=== PATIENT | female | born 1955 | race Hispanic/Latino ===

== ENCOUNTER 2018-07-24 15:04 | Observation (INO) | payer MEDICARE, OTHER ==
[2018-07-24 15:43] LABS: Bilirubin Small (Negative); Blood, Urine Negative (Negative); Clarity CLOUDY (Clear); Glucose, Urine (Dipstick) Negative (Negative); Leukocyte Small (Negative); Nitrite Positive (Negative); Protein, Urine (Dipstick) Negative (Neg-Trace); Specific Gravity, Urine 1.022 (1.002-1.036); Urobilinogen > or = 8.0 mg/dL (0.2-1.0); pH, Urine 6.5 (5.0-9.0)
[2018-07-24 15:44] LABS: Bacteria/HPF 4+ HPF (None Seen); Hyaline Casts/LPF 4-6 HYALINE CAST LPF (0-3 Hyaline); Pathc Cast-AUWi Flag 0.87 (0-2.49); Squamous Epithelial 0-3 HPF (0-3)
--- NOTE | 2018-07-24 15:53 | RAD ---
AP CHEST: Date: 07-24-18 Comparison: 01-06-17 FINDINGS: AP chest demonstrates calcification of the aorta. Severe bilateral shoulder osteoarthritic changes are seen. No evidence of effusions, pneumonia, or pn eumothorax is seen. Surgical clips are seen in the right upper quadrant of the abdomen. IMPRESSION: No evidence of acute intrathoracic abnormality seen. No evidence of effusions, pneumonia or pneumotho rax seen. POS: [facility]
[2018-07-24 15:54] LABS: RBC/HPF 0-3 HPF (0-3); Renal Epithelial None Seen HPF (0-3); Transitional Epithelial NONE SEEN HPF (0-3)
[2018-07-24 16:33] LABS: Hemoglobin 14.7 g/dL (12.0-16.0); Mean Corpuscular Hemoglobin 32.8 pg (27.0-31.0); Mean Corpuscular Volume 96.5 fL (78.0-98.0); Mean Platelet Volume 7.5 fL (7.4-10.4); Platelet Count 177 thou/uL (130-400); Red Blood Cell (RBC) Count 4.47 mill/uL (4.20-5.40); White Blood Cell (WBC) Count 3.7 thou/uL (4.8-10.8)
[2018-07-24] MEDS ORDERED: Piperacillin/Tazobactam 4.5 GM VIAL ONE (16:38)
[2018-07-24 16:56] LABS: Band 3 % (5-11); Eosinophils 1 % (0-10); Lymphocytes 73 % (21-51); MDiff Complete? YES; Monocytes 2 % (0-10); Neutrophil 21 % (42-75); PLT Morphology Comment Appears Adequate
[2018-07-24 17:08] LABS: ALT (SGPT) 11 U/L (8-55); AST (SGOT) 37 U/L (5-34); Albumin 3.4 g/dL (3.4-4.8); Alkaline Phosphatase 83 U/L (40-150); Anion Gap 12 mmol/L (10-20); BUN (Urea Nitrogen) 20 mg/dL (9.8-20.1); Bilirubin, Total 1.5 mg/dL (0.2-1.2); Calc. Creatinine Clearance 0 mL/min (70-130); Calcium 9.2 mg/dL (7.8-10.44); Carbon Dioxide 23 mmol/L (23-31); Chloride 110 mmol/L (98-107); Estimated GFR-MDRD 71; Globulin 3.5 g/dL (2.4-3.5); Glucose 88 mg/dL (80-115); Potassium 4.4 mmol/L (3.5-5.1); Protein, Total 6.9 g/dL (6.0-8.3); Sodium 141 mmol/L (136-145)
[2018-07-24] MEDS ORDERED: Sodium Chloride 0.9% 1,000 ML IV SCH (19:00)
[2018-07-24] MEDS ORDERED: Enoxaparin Sodium 40 MG/0.4 ML SYRINGE SC SCH (19:05)
[2018-07-24] MEDS ORDERED: HumaLOG 300 UNITS/3 ML VIAL SC PRN (19:05)
[2018-07-24] MEDS ORDERED: Dextrose 50% Abboject 50 ML SYRINGE SLOW IVP PRN (19:05)
[2018-07-24] MEDS ORDERED: Dextrose 5% in Water 1,000 ML IV PRN (19:05)
[2018-07-24] MEDS ORDERED: Acetaminophen 650 MG Suppository PR PRN (19:05)
[2018-07-24] MEDS ORDERED: Acetaminophen 325 MG TAB PO PRN (19:05)
--- NOTE | 2018-07-24 19:31 | HP ---
DATE OF ADMISSION: 07/24/2018 PRIMARY CARE PHYSICIAN: Sp Blakely MD TIME OF SERVICE: 1715. CHIEF COMPLAINT: Weakness and altered mental status. HISTORY OF PRESENT ILLNESS: Ms. Lemus is a pleasant 63-year-old female with history of cerebrovascular disease status post stroke in 2002, with residual right-sided paresis contractures, hypothyroidism, hyperlipidemia, hypertension, and schizophrenia, who has had a decreased p.o. intake for about 2 weeks. Over the last 24 hours to 48 hours, she has become more somnolent and lethargic, so the family had taken to the primary care physician over the last couple of days. She was checked for UTI without signs and subsequently came to the emergency department today because she was not act ing like herself. Workup in the ER was significant for neutropenia with absolute neutrophil count around 600-700 and a urinalysis consistent with urinary tract infection. She was given Zosyn and we were subsequently jorge led for admit. On my evaluation, family says the patient is much more alert than she has been, but still not quite a t her baseline. She had no fevers or chills, no sweats, no nausea and vomiting. No diarrhea and no new neurologic findings. PAST MEDICAL HISTORY: 1. Cerebrovascular disease, status post CVA in 2002. 2. Hypothyroidism. 3. Hyperlipidemia. 4. Hypertension. 5. Schizophrenia. 6. Left-sided paralysis. PAST SURGICAL HISTORY: Cholecystectomy, remotely. HOME MEDICATIONS: 1. Abilify 20 mg p.o. at bedtime. 2. Aspirin 325 mg p.o. q.a.m. 3. Cymbalta 30 mg p.o. q.a.m. 4. Pork thyroid 15 mg daily. 5. Lamictal 200 mg p.o. at bedtime. 6. Lisinopril 10 mg daily when blood pressure is okay or high enough to take . 6. Benztropine 1 mg p.o. at bedtime. The patient was taken off her Seroquel 300 mg p.o. at bedtime about 1 month ago for unknown reasons t mague I think is likely due to low white count. ALLERGIES: NKDA. FAMILY HISTORY: Negative for clotting or bleeding disorder. No immune dysfunction. SOCIAL HISTORY: Past tobacco, quit many years ago. No alcohol or drug. The patient lives at home w ith family. REVIEW OF SYSTEMS: All systems reviewed and negative except as per HPI. PHYSICAL EXAMINATION: VITAL SIGNS: Temperature 97.9, pulse 59, blood pressure 147/77, respiratory 18, O2 sat 98% on room a ir. GENERAL: She is awake and alert. She is in no acute distress. She is nonconversant. She does have a protrusive tongue, but appears comfortable. She answers appropriately to yes/no questions. HEENT: Normocephalic, atraumatic. Pupils equal, round, react to light bilaterally. Mucous membrane s are moist. She does have some leukoplakia. NECK: Supple. There is no lymphadenopathy, JVD, or thyromegaly. She has no carotid bruits. LUNGS: Clear bilaterally. No wheezes, no rales, no rhonchi with good air movement. She has symmetr ical chest excursion. No prolonged expiratory phase. CARDIOVASCULAR: Showed normal S1 and S2. No S3, S4. No audible murmurs. ABDOMEN: Soft, nontender, nondistended. She has no mass, no organomegaly. Good bowel sounds in all 4 quadrants. EXTREMITIES: No cyanosis, no clubbing. She has left upper and lower extremity contractures. SKIN: Warm, moist, and well perfused. She has no rashes or lesions. NEUROLOGIC: Otherwise, nonfocal. LABORATORY DATA: CBC showed a white count of 3.7. She has 21% neutrophils and 3% bands, giving her an ANC somewhere just under thousand around 800-900. She has 73% lymphocytes. CMP shows sodium 141, potassium 4.4, chloride 110, bicarbonate 23, BUN 20, creatinine 0.81, glucose of 88 and lactic acid 2.0, calcium was 9.2. Total bilirubin was slightly elevated at 1.5. AST slightly elevated at 37. R emainder of liver function normal limits. CBC showed urine ketones of 40. She is positive for nitri killian. She has small bilirubin, high urobilinogen, small leukocyte esterase, only 4-6 white cells, but given that she has neutropenia, it is not surprising. She has no red cells, no epithelial cells and 4+ bacteria. IMAGING STUDIES: She had a chest x-ray that showed no acute cardiopulmonary disease. ASSESSMENT AND PLAN: 1. Urinary tract infection. She does not show signs of sepsis, but does have a metabolic encephalop athy. She had a history of a chavez-susceptible Klebsiella about a year ago and fairly resistant E. col i about 2 years ago. We will cover with Rocephidioni tonight and follow up on urine culture results. 2. Metabolic encephalopathy. The patient is not quite acting like herself. We will hydrate her ton ight and reevaluate. 3. Essential hypertension. Continue home medications with hyperlipidemia. Continue home medication s. 4. Hypothyroidism. We will continue her pork thyroid. 5. History of cerebrovascular disease status post stroke in 2002 with residual left-sided hemiplegia . We will place in observation on medical and we will reevaluate in the morning.
[2018-07-24 19:53] VITALS: BMI 20.8
[2018-07-24] MEDS ORDERED: cefTRIAXone\\ROCEPHIN 2 GM in Sodium Chloride 0.9% 100 ML IVPB SCH (20:00)
[2018-07-24] MEDS: Famotidine 20 MG TAB PO SCH (20:48)
[2018-07-24] MEDS: Sodium Chloride 0.9% 1,000 ML IV SCH (20:48)
[2018-07-25 05:47] LABS: Anion Gap 12 mmol/L (10-20); BUN (Urea Nitrogen) 17 mg/dL (9.8-20.1); Calc. Creatinine Clearance 76 mL/min (70-130); Calcium 8.5 mg/dL (7.8-10.44); Carbon Dioxide 21 mmol/L (23-31); Chloride 113 mmol/L (98-107); Estimated GFR-MDRD Greater than 90; Glucose 62 mg/dL (80-115); Potassium 3.5 mmol/L (3.5-5.1); Sodium 142 mmol/L (136-145)
[2018-07-25 05:58] LABS: Band 6 % (5-11); Eosinophils 2 % (0-10); Hemoglobin 12.9 g/dL (12.0-16.0); Lymphocytes 50 % (21-51); MDiff Complete? YES; Mean Corpuscular HGB CONC 34.4 g/dL (32.0-36.0); Mean Corpuscular Volume 95.9 fL (78.0-98.0); Mean Platelet Volume 6.9 fL (7.4-10.4); Monocytes 6 % (0-10); Neutrophil 36 % (42-75); Platelet Count 155 thou/uL (130-400); RBC Distribution Width 12.8 % (11.5-14.5); Red Blood Cell (RBC) Count 3.91 mill/uL (4.20-5.40)
[2018-07-25] MEDS ORDERED: Eucerin (Mineral Oil/Petrolatum,White) 30 gm Jar TOP PRN (07:33)
[2018-07-25] MEDS ORDERED: Ondansetron HCl/PF 4 MG/2 ML Vial IVP PRN (07:33)
[2018-07-25] MEDS ORDERED: Cepastat Lozenges 1 LOZ PO PRN (07:33)
[2018-07-25] MEDS ORDERED: Zolpidem Tartrate 5 MG TAB PO PRN (07:33)
[2018-07-25] MEDS ORDERED: Artificial Tears 18 DROP/0.9 ML EA EYE PRN (07:33)
[2018-07-25] MEDS ORDERED: Ondansetron ODT 4 MG TAB PO PRN (07:33)
[2018-07-25] MEDS ORDERED: Diabetic Tussin 200 MG/10 ML UDCUP PO PRN (07:33)
[2018-07-25] MEDS ORDERED: Loperamide HCl 2 MG CAP PO PRN (07:33)
[2018-07-25] MEDS ORDERED: Loratadine 10 MG TAB PO PRN (07:33)
[2018-07-25] MEDS ORDERED: hydrALAZINE 20 MG/ML VIAL SLOW IVP PRN (07:33)
[2018-07-25] MEDS ORDERED: Sodium Chloride 0.65% Nasal 44 ML BOT EA NARE PRN (07:33)
[2018-07-25] MEDS ORDERED: Senokot S 8.6-50 MG TAB PO PRN (07:33)
[2018-07-25] MEDS ORDERED: AZO CRANBERRY PO SCH (09:00)
[2018-07-25] MEDS ORDERED: Lisinopril 10 MG TAB PO SCH (09:00)
[2018-07-25] MEDS ORDERED: Enoxaparin Sodium 40 MG/0.4 ML SYRINGE SC SCH (09:00)
[2018-07-25] MEDS ORDERED: CRANBERRY FRUIT 250 MG PO SCH (09:00)
[2018-07-25] MEDS ORDERED: Aspirin 325 mg Enteric Coated Tablet PO SCH (09:00)
[2018-07-25] MEDS ORDERED: Thyroid 30 MG TAB PO SCH (09:00)
[2018-07-25] MEDS ORDERED: DULoxetine 30 MG CAP PO SCH (09:00)
[2018-07-25] MEDS ORDERED: THYROID PORK 15 MG PO SCH (09:00)
[2018-07-25] MEDS ORDERED: Aspirin 81 mg Enteric Coated Tablet PO SCH (09:00)
[2018-07-25] MEDS ORDERED: Prevnar 13-Val Conj/PF 0.5 ML SYRINGE IM ONE (09:00)
[2018-07-25] MEDS: Sodium Chloride 0.9% 1,000 ML IV SCH (10:47)
[2018-07-25] MEDS: Famotidine 20 MG TAB PO SCH (10:50)
--- NOTE | 2018-07-25 10:50 | DIS ---
DATE OF ADMISSION: 07/24/2018 DATE OF DISCHARGE: 07/25/2018 PRIMARY CARE PHYSICIAN: [facility] Olayinka Smith. DISCHARGE DISPOSITION: Home. PRIMARY DISCHARGE DIAGNOSES: 1. Acute encephalopathy, due to urinary tract infection. 2. Dehydration, corrected. 3. Urinary tract infection. SECONDARY DISCHARGE DIAGNOSES: History of recurrent cerebrovascular accident, hypertension, dyslipid emia, hypothyroidism, multi-infarct dementia, oropharyngeal dysphagia, chronic physical deconditionin g, schizophrenia. PRIMARY PROCEDURES/OPERATIONS: None. RADIOLOGICAL INVESTIGATION: Chest x-ray normal. SIGNIFICANT LABORATORY DATA: WBC 4.0, hemoglobin 12.9, platelets 155. Sodium 142, potassium 3.5, BU N 17, creatinine 0.64, calcium 8.5, AST 37, ALT 11, alkaline phosphatase 83, albumin 3.4. Lactic aci d 2.0. Urinalysis suggestive of UTI. Urine culture is not obtained. Her blood culture is negative so far. Urine culture is pending. DISCHARGE MEDICATIONS: Omnicef 300 mg p.o. b.i.d. for 7 days, Abilify 20 mg p.o. at bedtime, aspirin 325 mg p.o. daily, benztropine 1 mg p.o. at bedtime, cranberry 250 mg p.o. daily, Lamictal 1 tablet at bedtime, lisinopril 10 mg p.o. daily, [place] Thyroid 15 mg p.o. daily, Cymbalta 30 mg p.o. daily. CONTRAINDICATIONS: None. CODE STATUS: FULL CODE. INPATIENT CONSULTANTS: None. ALLERGIES: No known drug allergy. DISCHARGE PLAN: Post hospital, the patient is instructed to follow up with primary care physician in 1 week. HOSPITAL COURSE: This is a 63-year-old female, who has multiinfarct dementia. She is wheelchair lynn nd. She has underlying chronic physical deconditioning as well as previous recurrent UTI. At this t norma, patient was not acting normal and she was weak and lethargic and that is why her suspect ed UTI and brought her to ER. Her urinalysis was suggestive of UTI. Urine culture and blood culture were sent in the emergency room. While in hospital, she was hydrated with IV fluids. She was given Rocephin. She was afebrile while in hospital, but she had slightly bandemia. We decided to treat h er UTI with cephalosporin. Culture is still in process. The patient is admitted as observation stat us. We are changing to Omnicef 300 mg twice daily for 7 more days. The patient and her are instructed to follow up on culture result as well as follow up with primary care physician to make an y necessary adjustment in medication if needed. I have seen this patient today and patient's reports that she is back to her baseline. We ar e starting her diet, and most likely if the patient has continued to do well, then we will consider d ischarging her later on today home with the family support. She will continue all her previous home medication and Omnicef for 7 more days. This patient is at high risk for recurrent admission for recurrent UTI. The patient is seen and exam ined at bedside today. Plan of care discussed with the patient's . PHYSICAL EXAMINATION: VITAL SIGNS: Currently, temperature 97.6, pulse 57, respiratory rate 18, saturation 95% on room air, blood pressure 153/72, weight 121 pounds. GENERAL: The patient is currently alert, awake. Follows simple command. No obvious acute distress. HEAD: Normocephalic, atraumatic. EYES: Pupils round and reactive to light. ENT: Oropharynx within normal limits. LUNGS: Clear, without any rhonchi. CARDIAC: S1 and S2 appears regular. No murmur. ABDOMEN: Soft and benign. EXTREMITIES: No edema. Contracture noted. NEUROLOGIC: Unable to assess at this point. Patient does have contracture from previous stroke.
--- NOTE | 2018-07-25 11:09 | PDOC.PN ---
- Subjective Encounter Start Date: 07/25/18 Encounter Start Time: 09:45 -: old records requested/rev Patient seen and examined. No new complaints. No overnight events per pt's pt is now at baseline - Objective Resuscitation Status: Resuscitation Status FULL:Full Resuscitation MAR Reviewed: Yes Vital Signs & Weight: Vital Signs (12 hours) Temp Pulse Resp BP BP Pulse Ox 07/25/18 10:49 153/72 H 07/25/18 07:41 97.6 F 57 L 18 153/72 H 95 07/25/18 04:00 97.5 F L 57 L 16 126/77 94 L 07/25/18 00:00 97.5 F L 65 16 144/82 H 94 L Weight Weight 121 lb 8 oz I&O: 07/24/18 07/25/18 07/26/18 06:59 06:59 06:59 Intake Total 850 Balance 850 Result Diagrams: 07/25/18 04:34 07/25/18 04:34 Additional Labs: Accuchecks 07/25/18 07/25/18 07/24/18 06:22 04:24 19:54 POC Glucose 81 62 L 70 Radiology Reviewed by me: Yes (chest xray normal) Phys Exam - Physical Examination Constitutional: NAD HEENT: PERRLA, moist MMs, sclera anicteric Neck: no JVD, supple Respiratory: no wheezing, no rales, no rhonchi Cardiovascular: RRR, no significant murmur, no rub Gastrointestinal: soft, non-tender, no distention, positive bowel sounds Musculoskeletal: no edema, pulses present contracture noted Lymphatic: no nodes Psychiatric: normal affect Skin: no rash, normal turgor Dx/Plan (1) UTI (urinary tract infection) Status: Acute Qualifiers: (2) H/O: CVA (cerebrovascular accident) Code(s): Z86.73 - PRSNL HX OF TIA (TIA), AND CEREB INFRC W/O RESID DEFICITS Status: Chronic (3) HLD (hyperlipidemia) Code(s): E78.5 - HYPERLIPIDEMIA, UNSPECIFIED Status: Chronic Qualifiers: (4) Hypothyroidism Code(s): E03.9 - HYPOTHYROIDISM, UNSPECIFIED Status: Chronic (5) Multi-infarct dementia, uncomplicated Code(s): F01.50 - VASCULAR DEMENTIA WITHOUT BEHAVIORAL DISTURBANCE Status: Chronic (6) Oropharyngeal dysphagia Code(s): R13.12 - DYSPHAGIA, OROPHARYNGEAL PHASE Status: Chronic (7) Physical deconditioning Code(s): R53.81 - OTHER MALAISE Status: Chronic (8) Schizophrenia Code(s): F20.9 - SCHIZOPHRENIA, UNSPECIFIED Status: Chronic (9) HTN (hypertension) Code(s): I10 - ESSENTIAL (PRIMARY) HYPERTENSION Status: Chronic Qualifiers: (10) Dehydration Code(s): E86.0 - DEHYDRATION Status: Acute - Plan cont current plan of care, plan discussed w/ family, continue antibiotics * medication reviewed as below * symptomatic treatment * continue rocephin * start diet as tolerated * continue IVF * omnicef on discharge * follow on culture, so far negative * discussed with . Review of Systems - Review of Systems Other: not reliable with pt due to dementia - Medications/Allergies Allergies/Adverse Reactions: Allergies Allergy/AdvReac Type Severity Reaction Status Date / Time No Known Drug Allergies Allergy Verified 07/22/16 18:38 Medications: Current Medications Acetaminophen (Tylenol) 650 mg PO Q4H PRN PRN Reason: Headache/Fever/Mild Pain (1-3) Aripiprazole (Abilify) 20 mg PO HS ARNOLDO Artificial Tears (Tears Naturale) 2 drop EA EYE PRN PRN PRN Reason: Dry Eyes Aspirin (Ecotrin) 325 mg PO DAILY [facility] Last Admin: 07/25/18 10:49 Dose: 325 mg Benztropine Mesylate (Cogentin) 1 mg PO HS ARNODLO Dextrose/Water (Dextrose 50%) 25 gm SLOW IVP PRN PRN PRN Reason: Hypoglycemia Duloxetine HCl (Cymbalta) 30 mg PO QAM [facility] Last Admin: 07/25/18 10:49 Dose: 30 mg Enoxaparin Sodium (Lovenox) 40 mg SC 0900 [facility] Last Admin: 07/25/18 10:50 Dose: 40 mg Famotidine (Pepcid) 20 mg PO BID [facility] Last Admin: 07/25/18 10:50 Dose: 20 mg Glucagon (Glucagon) 1 mg IM PRN PRN PRN Reason: Hypoglycemia Guaifenesin (Robitussin Sf) 200 mg PO Q4H PRN PRN Reason: Cough Hydralazine HCl (Apresoline) 10 mg SLOW IVP Q4H PRN PRN Reason: SBP > 180 and HR < 70 Ceftriaxone Sodium 2 gm/ (Sodium Chloride) 100 mls @ 200 mls/hr IVPB Q24HR [facility] Last Admin: 07/24/18 20:48 Dose: 100 mls Dextrose/Water (D5w) 1,000 mls @ 0 mls/hr IV .Q0M PRN PRN Reason: Hypoglycemia Sodium Chloride (Normal Saline 0.9%) 1,000 mls @ 75 mls/hr IV .[id number] [facility] Last Admin: 07/25/18 10:47 Dose: 1,000 mls Insulin Human Lispro (Humalog) 0 units SC .MILD SLIDING SCALE PRN PRN Reason: Mild Correctional Scale Lamotrigine (Lamictal) 200 mg PO [facility] Lisinopril (Zestril) 10 mg PO DAILY [facility] Last Admin: 07/25/18 10:49 Dose: 10 mg Loperamide HCl (Imodium) 2 mg PO PRN PRN PRN Reason: Diarrhea/Loose Stools Loratadine (Claritin) 10 mg PO DAILYPRN PRN PRN Reason: Sinus Symptoms Mineral Oil/White Petrolatum (Eucerin Cream) 0 gm TOP BIDPRN PRN PRN Reason: Dry Skin Ondansetron HCl (Zofran Odt) 4 mg PO Q6H PRN PRN Reason: Nausea/Vomiting Ondansetron HCl (Zofran) 4 mg IVP Q6H PRN PRN Reason: Nausea/Vomiting [Azo Cranberry] 250 (Mg) 0 each PO DAILY [facility] Senna/Docusate Sodium (Senokot S) 2 tab PO BID PRN PRN Reason: Constipation Sodium Chloride ([place] Nasal Mobile 0.65%) 0 ml EA NARE QIDPRN PRN PRN Reason: Nasal Congestion Sodium Chloride (Flush - Normal Saline) 10 ml IVF Q12HR [facility] Last Admin: 07/25/18 10:50 Dose: Not Given Sodium Chloride (Flush - Normal Saline) 10 ml IVF PRN PRN PRN Reason: Saline Flush Throat Lozenges (Cepastat Lozenges) 1 moshe PO Q2H PRN PRN Reason: Sore Throat Last Admin: 07/25/18 10:48 Dose: 1 moshe Thyroid ([place] Thyroid) 15 mg PO DAILY [facility] Last Admin: 07/25/18 10:48 Dose: 15 mg Zolpidem Tartrate (Ambien) 5 mg PO HSPRN PRN PRN Reason: Insomnia
[2018-07-25 11:54] VITALS: TEMP 98
[2018-07-25 16:27] VITALS: BP 146/69
[2018-07-25] MEDS ORDERED: Benztropine 1 MG TAB PO SCH (21:00)
[2018-07-25] MEDS ORDERED: LAMOTRIGINE PO SCH (21:00)
[2018-07-25] MEDS ORDERED: lamoTRIgine 100 MG TAB PO SCH (21:00)
[2018-07-25] MEDS ORDERED: Aripiprazole 10 MG TAB PO SCH (21:00)
--- NOTE | 2018-07-28 11:22 | PDOC.EVN ---
Event Note - Event Note Event Note: spoke to regarding correct antibiotic macrobid sent to pharmacy to [facility] and take that one and stop omnicef which is registant
--- NOTE | 2018-07-29 11:41 | EKG ---
Test Reason : Blood Pressure : / mmHG Vent. Rate : 060 BPM Atrial Rate : 060 BPM P-R Int : 224 ms QRS Dur : 094 ms QT Int : 486 ms P-R-T Axes : 088 028 092 degrees QTc Int : 486 ms Sinus rhythm with 1st degree A-V block Nonspecific T wave abnormality Abnormal ECG Septal T wave inversions Confirmed by LOULOU BANKS M.D. ([id number]), food editor FATMATA MENDOZA ([id number]) on 07/29/2018 11:41:04 AM Referred By: Confirmed By:LOULOU BANKS M.D.
== END 2018-07-25 18:30 | disposition home or self-care (01) ==
LOC: ERS 15:04 → T4-B 18:56
PROVIDERS: ADMIT Internal Medicine Infectious Disease; ATTEND Internal Medicine Infectious Disease
DX: N39.0 Urinary tract infection, site not specified (principal); B96.29 Other Escherichia coli [E. coli] as the cause of diseases classified elsewhere; G93.41 Metabolic encephalopathy; I69.351 Hemiplegia and hemiparesis following cerebral infarction affecting right dominant side; E03.9 Hypothyroidism, unspecified; E78.5 Hyperlipidemia, unspecified; I10 Essential (primary) hypertension; F20.9 Schizophrenia, unspecified; F01.50 Vascular dementia, unspecified severity, without behavioral disturbance, psychotic disturbance, mood disturbance, and anxiety; R13.12 Dysphagia, oropharyngeal phase; R53.81 Other malaise; E86.0 Dehydration; Z87.891 Personal history of nicotine dependence; Z79.82 Long term (current) use of aspirin; Z79.899 Other long term (current) drug therapy; Z99.3 Dependence on wheelchair
CPT/HCPCS: 36415; 36416; 51701; 71045; 80048; 80053; 81003; 81015; 83605; 85025; 87040; 87077; 87086; 87149; 87186; 90471; 90670; 93005; 96361; 96365; 96367; 96372; A4353; G0009; G0378; J0696; J1650; J2543; J7050

== ENCOUNTER 2018-08-14 13:13 | Observation (INO) | payer MEDICARE, OTHER ==
[2018-08-14 13:47] LABS: Bilirubin Small (Negative); Blood, Urine Negative (Negative); Clarity CLOUDY (Clear); Glucose, Urine (Dipstick) Negative (Negative); Leukocyte Moderate (Negative); Nitrite Negative (Negative); Protein, Urine (Dipstick) Negative (Neg-Trace); Specific Gravity, Urine 1.021 (1.002-1.036); pH, Urine 6.5 (5.0-9.0)
[2018-08-14 13:49] LABS: Bacteria/HPF 4+ HPF (None Seen); Hyaline Casts/LPF 7-10 HYALINE CAST LPF (0-3 Hyaline); Pathc Cast-AUWi Flag 0.87 (0-2.49); Squamous Epithelial 0-3 HPF (0-3); WBC/HPF 21-50 HPF (0-3)
--- NOTE | 2018-08-14 14:40 | RAD ---
CHEST 1 VIEW PORTABLE: HISTORY: A 63-year-old female with a history of urinary tract infection which was treated last week now with i ncreasing lethargy. COMPARISON: 07/24/2018. FINDINGS: Heart size is within normal limits. The lungs are clear of acute process. Stable biapical pleural t hickening and atherosclerotic ectatic changes of the aorta. IMPRESSION: Atherosclerotic ectatic changes of the aorta, stable. Stable biapical pleural thickening. No conflu ent pneumonia, overt edema, or other significant acute intrathoracic disease. POS: [facility]
[2018-08-14] MEDS ORDERED: cefTRIAXone\\ROCEPHIN 2 GM VIAL ONE (14:41)
[2018-08-14 15:08] LABS: #Eosinphils 0.1 thou/uL (0.0-0.7); #Monocytes 0.3 thou/uL (0.11-0.59); #Neutrophils 1.8 thou/uL (1.40-6.50); %Basophils 0.9 % (0.0-1.0); %Eosinophils 3.5 % (0.0-10.0); %Lymphocytes 46.5 % (21.0-51.0); %Monocytes 7.9 % (0.0-10.0); %Neutrophils 41.2 % (42.0-75.0); Hemoglobin 13.9 g/dL (12.0-16.0); Mean Corpuscular HGB CONC 33.9 g/dL (32.0-36.0); Mean Corpuscular Hemoglobin 32.4 pg (27.0-31.0); Mean Corpuscular Volume 95.7 fL (78.0-98.0); Mean Platelet Volume 7.5 fL (7.4-10.4); Platelet Count 167 thou/uL (130-400); RBC Distribution Width 13.2 % (11.5-14.5); White Blood Cell (WBC) Count 4.3 thou/uL (4.8-10.8)
[2018-08-14 15:27] LABS: ALT (SGPT) 13 U/L (8-55); AST (SGOT) 25 U/L (5-34); Albumin 3.4 g/dL (3.4-4.8); Alkaline Phosphatase 76 U/L (40-150); Anion Gap 13 mmol/L (10-20); BUN (Urea Nitrogen) 17 mg/dL (9.8-20.1); Bilirubin, Total 1.5 mg/dL (0.2-1.2); CK (CPK) 38 U/L (29-168); Calc. Creatinine Clearance 0 mL/min (70-130); Calcium 9.2 mg/dL (7.8-10.44); Carbon Dioxide 22 mmol/L (23-31); Chloride 112 mmol/L (98-107); Estimated GFR-MDRD 81; Globulin 3.2 g/dL (2.4-3.5); Glucose 100 mg/dL (80-115); Lipase 10 U/L (8-78); Potassium 3.7 mmol/L (3.5-5.1); Protein, Total 6.6 g/dL (6.0-8.3); Sodium 143 mmol/L (136-145)
[2018-08-14 15:31] LABS: CKMB 0.8 ng/mL (0-6.6); Troponin I Less than 0.010 ng/mL (< 0.028)
--- NOTE | 2018-08-14 16:33 | HP ---
PRIMARY CARE PROVIDER: Sp Blakely M.D. Referred to the [facility] for urinary tract infection and weakness. Patient's husban d states that she has been weak and fatigued for 2 days. She states she has had recurrent urinary tr act infections. Their doctor put her on a recent medicine that she would take the rest of her life t o prevent urinary tract infections. Denies hematuria. No fever or chills. No shortness of breath a nd has had some minor cough. REVIEW OF SYSTEMS: Not obtainable as the patient's speech is not understandable and is not clear alejandra t she understands her questions. PAST MEDICAL HISTORY: Pertinent for a CVA with dense left hemiplegia in 2002, hypothyroidism, hyperl ipidemia, hypertension, schizophrenia, left hemiplegia. PAST SURGICAL HISTORY: Remote cholecystectomy. ALLERGIES: No known medical allergies. CURRENT MEDICATIONS: Abilify 20 mg p.o. at bedtime, aspirin 325 mg a day, benztropine 1 mg at bedtim e, cranberry 250 mg daily, Lamictal 1 tablet at bedtime, lisinopril 10 mg a day, Thyroid 15 mg daily, Cymbalta 30 mg p.o. at bedtime, nitrofurantoin daily. FAMILY HISTORY: Negative for clotting or bleeding disorders. No immune dysfunction, no coronary art katarzyna disease, diabetes. SOCIAL HISTORY: Tobacco in the past. No history of alcohol. Patient lives at home with her family. PHYSICAL EXAMINATION: GENERAL: She is awake, responds barely, no intelligible speech, no distress. VITAL SIGNS: Temperature 98.7, pulse 60, blood pressure 140/76, respirations 18. HEENT: Examination of her head, eyes, ears, nose, and throat reveal pupils equal, round, and reactiv e to light. Extraocular movements are intact. Sclerae are white. Tympanic membranes are clear. No se is clear. Oral mucous membranes are wet. Dental hygiene is fair difficult exam. NECK: No jugular venous distention, adenopathy or thyromegaly. CHEST: Clear to auscultation and percussion. HEART: Regular rate and rhythm. First and second heart sounds clear. No appreciated murmurs or gal lops. ABDOMEN: Soft, bowel sounds normal. No hepatosplenomegaly, no mass, no rebound, no bruits. EXTREMITIES: Reveal no cyanosis, clubbing or edema. SKIN: Warm and dry without bruises or rash. PULSES: Carotid, radial, femoral, and dorsalis pedis pulses symmetric. HEME/LYMPH: Lymphatic survey reveals no tender or swollen lymph nodes in axilla, inguinal or cervica l area. NEUROLOGIC: No definite cranial nerve dysfunction. Dense left spastic hemiplegia with contractures. Positive Babinski on the left. IMAGING DATA: Chest x-ray, no cardiomegaly, CHF or infiltrate. She does have calcifications in the aortic knob, reviewed by me. No EKG available at this time. LABORATORY DATA: Sodium 143, potassium 3.7, CO2 112, BUN 22, glucose 81. Liver function tests miah l except for an increased bilirubin 1.5. White count 4.3, low neutrophils, platelet count 167, hemog lobin 13.9. Urinalysis 21-50 white cells, moderate esterase. PLAN: 1. Blood and urine cultures. 2. Rocephin IV. I have reviewed her past 2 urinary tract infections and they revealed no resistant bacteria. 3. Thyroid function test and cortisol level. 4. Repeat CBC and basic metabolic profile tomorrow. Selected home medicines. Reevaluate tomorrow.
[2018-08-14] MEDS ORDERED: Acetaminophen 325 MG TAB PO PRN (17:24)
[2018-08-14] MEDS ORDERED: Ondansetron PF 4 MG/2 ML Vial IVP PRN (17:24)
[2018-08-14 18:13] VITALS: BMI 18.4
[2018-08-14 18:56] LABS: T4 5.2 ug/dL (4.87-11.72)
[2018-08-14 18:57] LABS: Thyroid Stimulating Hormone 1.6438 uIU/mL (0.35-4.94)
[2018-08-15 04:31] LABS: #Eosinphils 0.2 thou/uL (0.0-0.7); #Lymphocytes 2.3 thou/uL (1.20-3.40); #Monocytes 0.3 thou/uL (0.11-0.59); %Basophils 0.8 % (0.0-1.0); %Eosinophils 4.1 % (0.0-10.0); %Lymphocytes 46.7 % (21.0-51.0); %Monocytes 6.4 % (0.0-10.0); Hemoglobin 12.7 g/dL (12.0-16.0); Mean Corpuscular HGB CONC 34.6 g/dL (32.0-36.0); Mean Corpuscular Volume 95.3 fL (78.0-98.0); Mean Platelet Volume 7.5 fL (7.4-10.4); Platelet Count 155 thou/uL (130-400); RBC Distribution Width 13.2 % (11.5-14.5); Red Blood Cell (RBC) Count 3.84 mill/uL (4.20-5.40); White Blood Cell (WBC) Count 4.8 thou/uL (4.8-10.8)
[2018-08-15 04:43] LABS: Anion Gap 8 mmol/L (10-20); BUN (Urea Nitrogen) 14 mg/dL (9.8-20.1); Calc. Creatinine Clearance 67 mL/min (70-130); Calcium 8.5 mg/dL (7.8-10.44); Carbon Dioxide 24 mmol/L (23-31); Chloride 113 mmol/L (98-107); Estimated GFR-MDRD Greater than 90; Glucose 93 mg/dL (80-115); Potassium 3.3 mmol/L (3.5-5.1); Sodium 142 mmol/L (136-145)
[2018-08-15] MEDS: Enoxaparin Sodium 40 MG/0.4 ML SYRINGE SC SCH (09:55)
--- NOTE | 2018-08-15 10:57 | PDOC.PN ---
- Subjective Encounter Start Date: 08/15/18 Encounter Start Time: 10:55 Subjective: alert, no distress - Objective Resuscitation Status: Resuscitation Status FULL:Full Resuscitation MAR Reviewed: Yes Vital Signs & Weight: Vital Signs (12 hours) Temp Pulse Resp BP Pulse Ox 08/15/18 07:00 98.7 F 63 20 133/62 94 L 08/15/18 03:00 98.6 F 60 16 121/60 96 08/14/18 23:00 97.7 F 54 L 16 125/60 95 Weight Admit Weight 107 lb 6.4 oz Weight 107 lb 6.4 oz I&O: 08/14/18 08/15/18 08/16/18 06:59 06:59 06:59 Intake Total 614 Balance 614 Result Diagrams: 08/15/18 04:10 08/15/18 03:58 Phys Exam - Physical Examination Neck: no JVD Respiratory: clear to auscultation bilateral Cardiovascular: RRR, no significant murmur Gastrointestinal: soft, positive bowel sounds Musculoskeletal: edema present Dx/Plan (1) Weakness Code(s): R53.1 - WEAKNESS Status: Acute (2) Sialoadenitis Code(s): K11.20 - SIALOADENITIS, UNSPECIFIED Status: Acute (3) Hypothyroidism Code(s): E03.9 - HYPOTHYROIDISM, UNSPECIFIED Status: Chronic Qualifiers: Hypothyroidism type: unspecified Qualified Code(s): E03.9 - Hypothyroidism , unspecified - Plan urine C&S gm kenzie carole- cont iv rocephin pendig Sensitivities * .
[2018-08-15] MEDS ORDERED: cefTRIAXone\\ROCEPHIN 1 GM in Sodium Chloride 0.9% 100 ML IVPB SCH (12:00)
[2018-08-15] MEDS ORDERED: Sodium Chloride 0.9% 10 ML ONE (21:35)
[2018-08-16] MEDS: Piperacillin/Tazobactam 3.375 GM in Sodium Chloride 0.9% 100 ML IVPB SCH ×2 (04:19→09:28)
[2018-08-16 08:45] VITALS: BP 129/68; TEMP 98.1
[2018-08-16] MEDS: Enoxaparin Sodium 40 MG/0.4 ML SYRINGE SC SCH (09:28)
--- NOTE | 2018-08-16 10:51 | DIS ---
TRANSFER OF CARE NOTE PRIMARY CARE PROVIDER: Sp Blakely DATE OF ADMISSION: 08/14/2018 DATE OF DISCHARGE: 08/16/2018 DISCHARGE DISPOSITION: Home. FINAL DIAGNOSES: 1. Urinary tract infection with Escherichia coli. 2. Generalized weakness, resolved. 3. Hypertension. 4. Hypothyroidism. DISCHARGE MEDICATIONS: Lamictal 1 tablet at bedtime, thyroid 6.26 mg a day, lisinopril 10 mg a day, nitrofurantoin 100 mg p.o. b.i.d., Cymbalta 30 mg a day, Abilify 20 mg a day, benztropine 1 mg at bed time, aspirin 325 mg a day. ALLERGIES: No known drug allergies. PENDING AT TIME OF DISCHARGE: Nothing. CODE STATUS: FULL CODE. HOSPITAL COURSE: The patient admitted through the emergency room with generalized weakness, found to have pyuria. Culture grew E. coli resistant to multiple antibiotics, sensitive to nitrofurantoin. She is being discharged on nitrofurantoin 100 mg p.o. b.i.d. to be followed up with her primary care provider in 1 week. Laboratory in the hospital failed to reveal any leukocytosis, anemia. Her Chem- 7 showed only a mildly elevated chloride and a bilirubin of 1.5. TSH was 1.6. Cortisol was 7. T4 w as 5.2. CONSULTATIONS: None. PROCEDURES: None.
[2018-08-16] MEDS ORDERED: Benztropine 1 MG TAB PO SCH (21:00)
[2018-08-16] MEDS ORDERED: lamoTRIgine 100 MG TAB PO SCH (21:00)
[2018-08-17] MEDS ORDERED: THYROID PORK PO SCH (09:00)
[2018-08-17] MEDS ORDERED: Aspirin 325 mg Enteric Coated Tablet PO SCH (09:00)
[2018-08-17] MEDS ORDERED: Lisinopril 10 MG TAB PO SCH (09:00)
[2018-08-17] MEDS ORDERED: DULoxetine 30 MG CAP PO SCH (09:00)
[2018-08-17] MEDS ORDERED: Aripiprazole 10 MG TAB PO SCH (21:00)
== END 2018-08-16 14:37 | disposition home or self-care (01) ==
LOC: ERS 13:13 → ONC 17:20
PROVIDERS: ADMIT Internal Medicine; ATTEND Internal Medicine
DX: N39.0 Urinary tract infection, site not specified (principal); B96.20 Unspecified Escherichia coli [E. coli] as the cause of diseases classified elsewhere; I10 Essential (primary) hypertension; K11.20 Sialoadenitis, unspecified; E03.9 Hypothyroidism, unspecified; Z79.899 Other long term (current) drug therapy
CPT/HCPCS: 51701; 71045; 80048; 82533; 82550; 82553; 83605; 83690; 84436; 84484; 85025; 87040; 87077; 87086; 87186; 93005; 96365; 96366 ×4; 96367 ×2; 96372; 99285; G0378 ×2; 36415; 80053; 81003; 81015; 84443; A4353; J0696; J1580; J1650; J2543; J3370; J7050